=== PATIENT | female | born 1985 | race Caucasian/White ===

== ENCOUNTER 2023-10-26 09:53 | Outpatient (CLI) | payer BC, SELFPAY ==
--- NOTE | 2023-10-26 10:03 | MM_ITS ---
WS: [id number] DIAGNOSTIC BILATERAL DIGITAL BREAST TOMOSYNTHESIS MAMMOGRAPHY WITH CAD RIGHT breast ultrasound, limited HISTORY: MASS OF R BREAST COMPARISON: None available. TECHNIQUE: Bilateral craniocaudad, mediolateral oblique, and mediolateral views are submitted with to mosynthesis and SM. Spot compression RIGHT CC. Computer aided detection utilized. Breast composition: There are scattered areas of fibroglandular density. No masses or distortion iden tified. No suspicious calcifications. RIGHT breast ultrasound, limited. Ultrasound is directed along the 9:00 axis of the RIGHT breast. No abnormality in the RIGHT breast from 8-10 o'clock as directed by the patient. MM/[id number] IMPRESSION: BI-RADS: 1-Negative FOLLOW UP: Age 42 No abnormality in the RIGHT breast.
== END 2023-10-26 09:54 | disposition home or self-care (01) ==
PROVIDERS: Family Provider Nurse Practitioner Family; PCP Nurse Practitioner Family; Visit Provider Nurse Practitioner Family
DX: N63.10 Unspecified lump in the right breast, unspecified quadrant (principal); R92.323 Mammographic fibroglandular density, bilateral breasts
CPT/HCPCS: 76642; 77062; G0279